=== PATIENT | female | born 1980 | race Caucasian/White ===

== ENCOUNTER → 2021-01-16 10:01 | Outpatient (BNVA) | payer OTHER, SELFPAY | PROVIDERS: PCP Family Medicine; Visit Provider Family Medicine | DX: F32.9 Major depressive disorder, single episode, unspecified (principal); G43.101 Migraine with aura, not intractable, with status migrainosus; M25.50 Pain in unspecified joint; G43.111 Migraine with aura, intractable, with status migrainosus | CPT/HCPCS: 80053; 85025; 85651; 86038; 86140; 86431 ==

== ENCOUNTER → 2021-04-22 10:06 | Outpatient (BNVA) | payer OTHER, SELFPAY | PROVIDERS: PCP Family Medicine; Visit Provider Internal Medicine | DX: M25.50 Pain in unspecified joint (principal); R53.83 Other fatigue; Z79.899 Other long term (current) drug therapy; Z11.59 Encounter for screening for other viral diseases; F41.9 Anxiety disorder, unspecified; F31.9 Bipolar disorder, unspecified; F17.290 Nicotine dependence, other tobacco product, uncomplicated | CPT/HCPCS: 99204 ==

== ENCOUNTER 2021-04-22 11:58 | Outpatient (CLI) | payer OTHER, SELFPAY ==
--- NOTE | 2021-04-22 12:17 | XRR_ITS ---
PROCEDURE INFORMATION: Exam: XR Left Knee Exam date and time: 04/22/2021 12:17 PM Age: 40 years old Clinical indication: Pain; Knee; Bilateral; Additional info: M25.50 - pain in unspecified joint TECHNIQUE: Imaging protocol: XR Left knee. Views: 1 or 2 views. COMPARISON: CR XR foot LT 2V [id number] 04/22/2021 12:33 PM FINDINGS: Bones/joints: Normal. Soft tissues: Normal. XR/XR knee LT 1-2V [id number] IMPRESSION: No significant abnormality. Radiation Dose CTDIVOL = (mGy): DLP = (mGy-cm)
--- NOTE | 2021-04-22 12:17 | XRR_ITS ---
PROCEDURE INFORMATION: Exam: XR Left Foot Exam date and time: 04/22/2021 12:17 PM Age: 40 years old Clinical indication: Pain; Foot; Bilateral; Additional info: M25.50 - pain in unspecified joint TECHNIQUE: Imaging protocol: XR Left foot. Views: 1 or 2 views. COMPARISON: No relevant prior studies available. FINDINGS: Bones/joints: No fracture or other acute abnormalities are seen. There is a small spur on the calcaneus at the Achilles tendon insertion. There is chronic degenerative narrowing and sclerosis at the 1st metatarsophalangeal joint. Soft tissues: Normal. XR/XR foot LT 2V [id number] IMPRESSION: 1. No acute abnormality. 2. Small spur on the calcaneus at the Achilles tendon insertion. 3. 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 Radiation Dose CTDIVOL = (mGy): DLP = (mGy-cm)
--- NOTE | 2021-04-22 12:17 | XRR_ITS ---
PROCEDURE INFORMATION: Exam: XR Right Hand Exam date and time: 04/22/2021 12:17 PM Age: 40 years old Clinical indication: Pain; Hand; Bilateral; Additional info: M25.50 - pain in unspecified joint TECHNIQUE: Imaging protocol: XR Right hand. Views: 1 or 2 views. COMPARISON: No relevant prior studies available. FINDINGS: Bones/joints: Normal. Soft tissues: Normal. XR/XR hand RT 2V [id number] IMPRESSION: No acute findings. Radiation Dose CTDIVOL = (mGy): DLP = (mGy-cm)
--- NOTE | 2021-04-22 12:17 | XRR_ITS ---
PROCEDURE INFORMATION: Exam: XR Left Hand Exam date and time: 04/22/2021 12:17 PM Age: 40 years old Clinical indication: Pain; Hand; Bilateral; Additional info: M25.50 - pain in unspecified joint TECHNIQUE: Imaging protocol: XR Left hand. Views: 3 or more views. COMPARISON: No relevant prior studies available. FINDINGS: Bones/joints: Normal. Soft tissues: Normal. XR/XR hand LT 2V [id number] IMPRESSION: No significant abnormality. Radiation Dose CTDIVOL = (mGy): DLP = (mGy-cm)
--- NOTE | 2021-04-22 12:17 | XRR_ITS ---
PROCEDURE INFORMATION: Exam: XR Bilateral Sacroiliac Joints Exam date and time: 04/22/2021 12:17 PM Age: 40 years old Clinical indication: Condition or disease; Other: Psoriasis, unspecified; Additional info: L40.9 - psoriasis, unspecified TECHNIQUE: Imaging protocol: XR Bilateral XR of the sacroiliac joints. Views: 3 or more views. COMPARISON: No relevant prior studies available. FINDINGS: Bones/joints: Normal. No acute fracture. Soft tissues: Normal. XR/XR sacroiliac jts m 3V [id number] IMPRESSION: The sacroiliac joints are unremarkable. Radiation Dose CTDIVOL = (mGy): DLP = (mGy-cm)
--- NOTE | 2021-04-22 12:17 | XRR_ITS ---
PROCEDURE INFORMATION: Exam: XR Cervical Spine Exam date and time: 04/22/2021 12:17 PM Age: 40 years old Clinical indication: Neck pain; Additional info: M25.50 - pain in unspecified joint TECHNIQUE: Imaging protocol: XR of the cervical spine. Views: 2 or 3 views. COMPARISON: No relevant prior studies available. FINDINGS: Bones/joints: Fhrd-qz-[id number] DJD is present with disc space narrowing and small osteophytes predominantly at the C5-C6 level. No fracture or other acute abnormalities are seen. There is no significant malalignment. Soft tissues: Unremarkable. XR/XR cervical spine fl/ex [id number] IMPRESSION: Etom-fx-hfngebfz DJD predominantly at C5-C6. No acute abnormality or malalignment. Radiation Dose CTDIVOL = (mGy): DLP = (mGy-cm)
--- NOTE | 2021-04-22 12:17 | XRR_ITS ---
PROCEDURE INFORMATION: Exam: XR Right Foot Exam date and time: 04/22/2021 12:17 PM Age: 40 years old Clinical indication: Pain; Foot; Bilateral; Additional info: M25.50 - pain in unspecified joint TECHNIQUE: Imaging protocol: XR Right foot. Views: 1 or 2 views. COMPARISON: No relevant prior studies available. FINDINGS: Bones/joints: There is a small calcaneal spur at the Achilles tendon insertion. No fracture, dislocation or other acute bone or joint abnormalities are seen. Soft tissues: Normal. XR/XR foot RT 2V [id number] IMPRESSION: Small spur on the calcaneus at the Achilles tendon insertion. No acute abnormality. Radiation Dose CTDIVOL = (mGy): DLP = (mGy-cm)
--- NOTE | 2021-04-22 12:17 | XRR_ITS ---
PROCEDURE INFORMATION: Exam: XR Right Knee Exam date and time: 04/22/2021 12:17 PM Age: 40 years old Clinical indication: Pain; Knee; Bilateral; Additional info: M25.50 - pain in unspecified joint TECHNIQUE: Imaging protocol: XR Right knee. Views: 1 or 2 views. COMPARISON: CR XR foot RT 2V [id number] 04/22/2021 12:32 PM FINDINGS: Bones/joints: Normal. Soft tissues: Normal. XR/XR knee RT 1-2V 84399 IMPRESSION: No significant abnormality. Radiation Dose CTDIVOL = (mGy): DLP = (mGy-cm)
[2021-04-22 13:17] LABS: Basophils # 0.1 10^3/uL (0.0-0.1); Basophils % 0.8 %; Eosinophils # 0.1 10^3/uL (0.0-0.8); Eosinophils % 1.4 %; Hematocrit 40.4 % (37.0-47.0); Hemoglobin 12.7 g/dL (11.5-15.3); Lymphocytes # 1.6 10^3/uL (0.8-4.8); Lymphocytes % 22.3 %; Mean Corpuscular HGB Conc 31.4 g/dL (30.0-36.0); Mean Corpuscular Volume 92.2 fl (81-99); Mean Platelet Volume 10.6 fL (7.4-10.4); Monocytes # 0.5 10^3/uL (0.2-0.9); Monocytes % 7.1 %; Neutrophils # 4.89 10^3/uL (1.8-7.7); Neutrophils % 68.1 %; Nucleated Red Blood Cells % 0 %; Platelet Count 245 10^3/cmm (130-400); Red Blood Count 4.38 10^6/uL (4.1-5.3); Red Cell Distribution Width 12.5 % (12.1-15.1); White Blood Count 7.2 10^3/uL (4.0-10.0)
[2021-04-22 13:52] LABS: Calcium 9.6 mg/dL (8.5-10.5)
[2021-04-22 13:54] LABS: Alanine Aminotransferase 20 U/L (0-33); Albumin Level 4.1 g/dL (3.5-5.2); Alkaline Phosphatase 102 IU/L (35-105); Aspartate Amino Transferase 14 U/L (0-32); Blood Urea Nitrogen 17 mg/dL (6-20); C Reactive Protein 4.4 mg/L (0.0-4.9); Calcium 9.4 mg/dL (8.5-10.5); Carbon Dioxide 23 mmol/L (22-29); Chloride 105 mmol/L (98-107); Creatine Phosphokinase 45 U/L (26-192); Ferritin 158 ng/mL (15-150); Globulin 2.9 g/dL (1.3-4.6); Glomerular Filtration Rate 93.6 mL/min (90-130); Glucose 80 mg/dL (65-115); Iron 60 ug/dL (37-145); Magnesium 2.2 mg/dL (1.7-2.3); Osmolality Calculated 285 mOsm/kg (285-295); Sodium 137 mmol/L (136-145); Total Bilirubin 0.2 mg/dL (0.15-1.2); Uric Acid 4.4 mg/dL (2.4-5.7)
[2021-04-22 13:57] LABS: Parathyroid Hormone 37.7 pg/mL (15-65)
[2021-04-22 14:08] LABS: 25 Hydroxy Vitamin D 36 ng/mL (30-100); Cortisol Random 8.81 ug/dL (2.47-19.5); Hepatitis B Core AB, Total Non-Reactive (Nonreactive); Hepatitis B Surface Antigen Non-Reactive (Nonreactive); Hepatitis C Virus Antibody Non-Reactive (Nonreactive); Vitamin B12 626 pg/mL (232-1245)
[2021-04-23 13:22] LABS: Cyclic Citrullinated Peptide <16 UNITS
[2021-04-23 13:58] LABS: COMPLEMENT, TOTAL (CH50) >60 U/mL (31-60)
[2021-04-23 16:19] LABS: COMPLEMENT COMPONENT C3C 174 mg/dL (83-193); COMPLEMENT COMPONENT C4C 47 mg/dL (15-57)
[2021-04-24 16:28] LABS: CENTROMERE B ANTIBODY <1.0 NEG AI (<1.0 NEG); JO-1 ANTIBODY <1.0 NEG AI (<1.0 NEG); RNP ANTIBODY <1.0 NEG AI (<1.0 NEG); SCL-70 ANTIBODY <1.0 NEG AI (<1.0 NEG); SJOGREN'S ANTIBODY (SS-A) <1.0 NEG AI (<1.0 NEG); SM ANTIBODY <1.0 NEG AI (<1.0 NEG); SS-B <1.0 NEG AI (<1.0 NEG)
[2021-04-24 16:32] LABS: Immunoglobulin A 245 mg/dL (47-310)
[2021-04-24 17:17] LABS: THYROID PEROXIDASE ANTIBODIES <1 IU/mL (<9)
[2021-04-25 16:39] LABS: ANA SCREEN, IFA NEGATIVE (NEGATIVE)
[2021-04-29 13:22] LABS: DNA AB (DS) CRITHIDIA,IFA NEGATIVE (NEGATIVE)
== END 2021-04-22 11:59 | disposition home or self-care (01) ==
LOC: RAD 12:07
PROVIDERS: PCP Family Medicine; Visit Provider Internal Medicine
DX: M25.50 Pain in unspecified joint (principal); R53.83 Other fatigue; Z79.899 Other long term (current) drug therapy; L40.9 Psoriasis, unspecified; Z11.59 Encounter for screening for other viral diseases
CPT/HCPCS: 36415; 72040; 72202; 73120; 73560; 73620; 80053; 82306; 82310; 82533; 82550; 82607; 82728; 82784; 83516; 83540; 83735; 83970; 84100; 84550; 85025; 86140; 86160; 86162; 86200; 86235; 86255; 86376; 86704; 86803; 87340

== ENCOUNTER → 2021-05-06 11:13 | Outpatient (BNVA) | payer OTHER, SELFPAY | PROVIDERS: PCP Family Medicine; Visit Provider Internal Medicine | DX: M19.90 Unspecified osteoarthritis, unspecified site (principal); M54.9 Dorsalgia, unspecified; F17.290 Nicotine dependence, other tobacco product, uncomplicated | CPT/HCPCS: 99214 ==

== ENCOUNTER → 2021-05-20 08:28 | Outpatient (BNVA) | payer OTHER, SELFPAY | PROVIDERS: PCP Family Medicine; Visit Provider Family Medicine | DX: R63.5 Abnormal weight gain (principal); M19.90 Unspecified osteoarthritis, unspecified site; Z68.35 Body mass index [BMI] 35.0-35.9, adult | CPT/HCPCS: 80061; 83036; 84443 ==

== ENCOUNTER → 2021-05-21 09:07 | Outpatient (BNVA) | payer OTHER, SELFPAY | PROVIDERS: PCP Family Medicine; Referring Provider Internal Medicine; Visit Provider Anesthesiology Pain Medicine | DX: M54.12 Radiculopathy, cervical region (principal); M47.812 Spondylosis without myelopathy or radiculopathy, cervical region; M79.602 Pain in left arm; M25.561 Pain in right knee; M25.562 Pain in left knee | CPT/HCPCS: 99204 ==

== ENCOUNTER → 2022-02-26 09:39 | Outpatient (BNVA) | payer OTHER, SELFPAY | PROVIDERS: PCP Family Medicine; Visit Provider Student in an Organized Health Care Education/Training Program | DX: M67.431 Ganglion, right wrist (principal) | CPT/HCPCS: 73110 ==

== ENCOUNTER 2022-03-18 06:42 | Day surgery (SDC) | payer OTHER, SELFPAY ==
[2022-03-17 08:22] VITALS: BMI 34.9
[2022-03-18] VITALS (15 sets, daily range): BP systolic 110–155; BP diastolic 59–93; PULSE 50–71; RESP 12–18; TEMP 36.2–36.6; O2SAT 96–100
--- NOTE | 2022-03-18 06:59 | W.PM.OPSUD ---
Surgery/Procedure H&P Update DATE OF PROCEDURE: March 18, 2022 DATE H&P PERFORMED: 02/26/22 CHANGES TO PREVIOUS DOCUMENTATION: None PREOP DIAGNOSIS: Right dorsal wrist ganglion cyst PRIMARY INDICATION FOR PROCEDURE: Painful Right dorsal wrist ganglion cyst PLANNED PROCEDURE: Operation Date: 03/18/22 08:20 Proposed Procedures p RIGHT WRIST DORSAL GANGLION CYST EXCISION [id number],M25.539(Right) - Daniel Krueger DO
[2022-03-18] MEDS: acetaminophen 1,000 MG/100 ML PIGGYBACK 400 MG IV (07:25)
[2022-03-18] MEDS: sodium chloride 0.9% 1,000 ML 30 ML IV (07:25)
--- NOTE | 2022-03-18 07:32 | ANES.PREANE2 ---
Pre-Anesthetic Assessment Height/Weight: Height 1.57 m Weight 86.636 kg Temp Pulse Resp BP Pulse Ox O2 Del Method 98 F 70 16 116/93 99 03/18/22 07:03 03/18/22 07:03 03/18/22 07:03 03/18/22 07:03 03/18/22 07:03 03/18/22 07:03 Preop Diagnosis: Right dorsal wrist ganglion cyst Operation Date: 03/18/22 08:20 Proposed Procedures p RIGHT WRIST DORSAL GANGLION CYST EXCISION [id number],M25.539(Right) - Daniel Gonzales, Familial anesthetic complications: none Was Beta Caryn taken within 24 hours: N/A Was Clonidine taken within 24 hours: N/A Last intake: Intake Last Liquid Date 03/17/22 Last Liquid Time 18:30 Last Solid Date 03/17/22 Last Solid Time 18:30 Social No alcohol and No tobacco Exam alert, oriented x 3, clear to auscultation bilaterally and regular rate & rhythm Airway Submandibular: within normal limits Cervical ROM: within normal limits Mallampati: Class II Dentition: full Metabolic Morbid Obesity Musc/skel Lower Back Pain and Osteoarthritis/DJD Neuropsych Anxiety, Depression and Headache Anesthetic Plan ASA status: 2 Anesthesia: MAC Medications/Allergies Home Medications Medication Instructions Recorded Confirmed Last Taken Type No Known Home Medications 02/13/22 03/17/22 Unknown History Allergies Allergy/AdvReac Type Severity Reaction Status Date / Time Iodinated Contrast Media Allergy swelling Verified 03/17/22 08:21 Penicillins Allergy rash Verified 03/17/22 08:21 tramadol Allergy rash and Verified 03/17/22 08:21 itching Current Medications Generic Name Dose Route Start Last Admin Trade Name Freq PRN Reason Stop Dose Admin Sodium Chloride 1,000 mls @ 30 mls/hr 03/18/22 07:00 03/18/22 07:25 Sodium Chloride 0.9% IV 03/19/22 06:59 30 mls/hr .Q24H RENETTA Administration PFSH Anesthesia Medical History Back pain Bipolar 2 disorder ROBERT (generalized anxiety disorder) Grief Migraine with aura with status migrainosus Other reactions to severe stress Problems related to lack of adequate sleep Psychiatric care Surgical History H/O hysterectomy for benign disease Still has one one ovary At age 33 Family History Grandfather Heart attack Hypertension Mother Rheumatoid arthritis Lupus Grandmother Rheumatoid arthritis Father Cancer Denies family history of Diabetes Hyperlipidemia Stroke Social History Smoking and tobacco status: current every day smoker e-cigarettes Alcohol intake: never Adopted: No Caregiver/support person: No Lives independently: No Household members: spouse Marital status: service: No Current occupational status: employed History of recent travel: No Sexually active: Yes Current gender identity: Female Data Anesthesia Cardiac Studies: No Data to Display
[2022-03-18] MEDS: ketorolac 30 mg/mL INJ IVP (07:38)
[2022-03-18] MEDS: clindamycin 600 MG/50 ML PREMIX 100 MG IV (08:24)
[2022-03-18] MEDS: sodium bicarbonate 1 mEq/mL SDV 50mL XX (08:51)
[2022-03-18] MEDS: meperidine 50 mg/mL INJ 12.5 MG IVP (09:28)
--- NOTE | 2022-03-18 09:29 | PM.PACU ---
PACU note Narrative: Patient recovering well in PACU. Splint on and in place. Patient is able to wiggle fingers sensation intact to light touch to the radial/ulnar/median nerve distribution. Fingertips warm well-perfused brisk capillary refill less than 2 seconds. Dressing clean dry and intact. Exam: awake (See narrative exam for details) Disposition: discharged
--- NOTE | 2022-03-18 09:30 | P.OP_ITS ---
Brief Operative Note Date of procedure: 03/19/22 Pre-op diagnosis: Painful right wrist dorsal ganglion cyst Post-op diagnosis: same Procedure Done: Right wrist dorsal ganglion cyst excision Surgeon: Daniel Krueger Estimated blood loss (mL): 5 Complications: None Post-op Plan: Patient recover in PACU. Volar splint on in place. Patient given appropriate discharge instructions and will follow up the orthopedic office in 2 weeks. We will have her seen by OT hand therapy next week for dressing takedown as well as begin range of motion. Condition: stable Disposition: same day Coding Level of Care Code Acute Fabric Awning Repairer for Anu Galloway
[2022-03-18] MEDS: ondansetron 2 mg/ML SDV 2 mL 4 MG IVP ×2 (09:32→10:50)
--- NOTE | 2022-03-18 09:39 | P.OP_ITS ---
Operative Report Date of procedure: March 19, 2022 Pre-op diagnosis: Preop Diagnosis Right dorsal wrist ganglion cyst Post-op diagnosis: Same Procedure done: Right wrist dorsal ganglion cyst excision Specimens removed/disposition: Right wrist dorsal ganglion cyst excised and sent for pathology Pathology: Right wrist dorsal ganglion cyst excised and sent for pathology Surgeon: Daniel Krueger DO Estimated blood loss (mL): 5 20 minutes IV fluids: See anesthesia record Complications: None Findings: See operative note Condition: stable Disposition: same day Brief History: Patient was seen evaluated worked up in the outpatient clinic with painful right dorsal ganglion cyst. 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 We had detailed discussion about nonoperative and operative intervention ultimately at this point we talked that this can be left alone and this can be decompressed in the office versus surgical excision. Given the constant pain and discomfort and she would like this to have the lowest chance of recurrence she would like to proceed with a right wrist dorsal ganglion cyst excision. Through shared decision making we agreed to proceed with this plan. Patient understands the risk benefits complications alternatives to surgical treatment options and elects to proceed with surgery. Consent was obtained in the office Procedure: Patient seen evaluated in the preoperative holding area. Consent was reviewed with patient the correct extremity was then marked. Patient then was evaluated by the anesthesia and preoperative team once appropriately cleared for surgery she was taken back to the operative suite and placed on the supine position on the OR table with right hand on the armboard. She was appropriately secured and all bony prominences well-padded. Nonsterile tourniquet was applied to the right upper extremity. Patient received appropriate preoperative antibiotics. Right upper extremity was then prepped and draped in standard orthopedic fashion. Prior to incision patient was injected with local of 5 cc lidocaine 5 cc ropivacaine around the planned incision site. Esmarch tourniquet was used exsanguinate the extremity and tourniquet inflated to 250 mmHg. Next direct longitudinal incision was made centering over the ganglion cyst. Sharp dissection through skin and subcutaneous tissue. Next I utilized Littler dissection scissors to dissect out any cutaneous nerve branches were protected throughout this case. I then came over the distal end of the extensor retinaculum. This point it was clear patient's cyst was between the third and fourth dorsal compartments distally. I had to incise the sheath between these 2 intervals distally I did not have to violate the extensor retinaculum. Care was made to protect the extensor tendons throughout the case. I spread longitudinal and at this point time came down directly over the ganglion cyst which was evidence in its appearance and extend from the dorsal capsule communication. At this point utilized Littler dissection scissors to mobilize circumferentially around and once this was complete I identified the stalk and transected this at the base utilizing electrocautery. I did poke the dorsal ganglion cyst which had standard gelatinous ganglion cyst fluid this was sent for pathology. Next identified the cyst bed and utilized bipolar electrocautery to thoroughly cauterize the entire bed to prevent any type of recurrence. This point the wound bed was then thoroughly irrigated the wrist was taken through range of m otion no evidence of instability and no dorsal wrist prominence noted. Tourniquet deflated hemostasis adequate with electrocautery. I then performed a layered closure 3-0 Vicryl and running horizontal mattress nylon suture. Xeroform 4 x 4's Kerlix ABD and a volar splint applied to the right upper extremity. Patient awakened from anesthesia and taken to PACU in stable condition. Disposition: Patient recovering in PACU. Patient in a volar splint dressing clean dry and intact. Given appropriate discharge instructions as well as pain medication. May be weightbearing as tolerated to the right hand. Will best be seen by OT hand therapy for dressing change and begin range of motion strengthening postoperatively. Follow-up with me in 2 weeks.
[2022-03-18] MEDS: fentaNYL 50 mcg/mL INJ 2mL IVP (09:42)
[2022-03-18] MEDS: oxyCODONE 5 mg IR Tab/Cap PO (10:21)
--- NOTE | 2022-03-18 15:37 | ANE.PACU2 ---
Inpatient post-anesthesia follow up: Airway intact: Yes Vital signs: Temperature 97.2 F Pulse Rate 52 Respiratory Rate 18 Blood Pressure 155/89 Pulse Oximetry 100 Oxygen Delivery Me thod Room Air Oxygen Flow Rate 6 Fraction of Inspir ed Oxygen Hydration adequate: Yes Nausea and vomiting: No Pain level: 3 Mental status: Baseline
== END 2022-03-18 11:30 | disposition home or self-care (01) ==
PROVIDERS: PCP Registered Nurse; Visit Provider Student in an Organized Health Care Education/Training Program
PROC: (CPT 25111; principal; 2022-03-18 08:10)
DX: M67.431 Ganglion, right wrist (principal); E66.01 Morbid (severe) obesity due to excess calories; Z68.34 Body mass index [BMI] 34.0-34.9, adult; F41.1 Generalized anxiety disorder; F17.290 Nicotine dependence, other tobacco product, uncomplicated
CPT/HCPCS: 25111; 88304; J1885; J2175; J2250; J2405; J2704; J3010; J3490; J7030

== ENCOUNTER 2022-03-24 06:00 | Outpatient (RCR) | payer OTHER, SELFPAY | END 2022-04-20 23:59 | disposition home or self-care (01) | LOC: SOT 06:00 | PROVIDERS: PCP Registered Nurse; Visit Provider Student in an Organized Health Care Education/Training Program | DX: M67.431 Ganglion, right wrist (principal) | CPT/HCPCS: 97110; 97140; 97166 ==

== ENCOUNTER → 2023-08-30 13:09 | Outpatient (BNVA) | payer OTHER, SELFPAY | PROVIDERS: PCP Registered Nurse; Visit Provider Nurse Practitioner | DX: Z79.899 Other long term (current) drug therapy (principal); F31.81 Bipolar II disorder; F41.1 Generalized anxiety disorder | CPT/HCPCS: 80061; 83036 ==

== ENCOUNTER 2024-01-17 12:14 | Outpatient (CLI) | payer BC, SELFPAY ==
--- NOTE | 2024-01-17 | ECG_ITS ---
[facility] Test Date: 2024-01-17 Pat Name: Darlene Ortiz Department: Room: Gender: Female Support Dba: : 1980 Requested By: Ruby Moreno Order Number: [id number] Reading MD: Interpretive Statements Lung unchanged pre/post procedure; Intraprocedure shortess of breath; Symptoms resoled by discharge [id number]
[2024-01-17 12:22] VITALS: BMI 30.2
[2024-01-17 13:13] VITALS: BP 111/72; PULSE 75
== END 2024-01-17 12:15 | disposition home or self-care (01) ==
LOC: CDL 12:15
PROVIDERS: PCP Nurse Practitioner Family; Visit Provider Nurse Practitioner Family
DX: R00.1 Bradycardia, unspecified (principal); R55 Syncope and collapse; R07.9 Chest pain, unspecified; R06.02 Shortness of breath
CPT/HCPCS: 93017

== ENCOUNTER 2024-03-30 07:08 | Outpatient (CLI) | payer BC, SELFPAY ==
[2024-03-30 07:28] VITALS: BMI 31.4
--- NOTE | 2024-03-30 07:28 | ECG_ITS ---
[facility] Test Date: 2024-03-30 Pat Name: Darlene Ortiz Department: Room: Gender: Female Net Web Application Developer: : 1980 Requested By: Ruby Moreno Order Number: [id number] Thurman MD: Norberto Jesus M.D. Interpretive Statements LEXISCAN SESTAMIBI STRESS TEST Procedure: At the baseline, the blood pressure was 116/85 mmHg with a heart rate of 52bpm. The electrocardiogram showed Sinus bradycardia, normal axis with normal ST and T's. The Lexiscan was infused over a period of 20 seconds. A total of 0.4 mg of Lexiscan was infused. The stress phase was continued for a total of 5 minutes. Heart rate was at the end of stress phase was 74bpm and a blood pressure of 112/73 mmHg. The EKG at the peak infusion revealed normal sinus rhythm with no significant ST-T wave changes. Sestamibi was injected 20 seconds after the Lexiscan infusion. Blood pressure at the end of recovery phase was 116/70 mmHg with a heart rate of 72 bpm. Conclusion: 1. Normal EKG response to Lexiscan infusion 2. No Lexiscan induced chest pain or cardiac arrhythmia. 3. Normal blood pressure and heart rate response. 4. Sestamibi/sestamibi perfusion scan pending; see separate report. Electronically Signed On 03-31-2024 19:45:12 CDT by Norberto Jesus M.D. [id number]
--- NOTE | 2024-03-30 07:29 | NMCV_ITS ---
NM lester perf SPECT r/s* [id number] Darlene Ortiz Age: 43 Gender: F : 1980 Exam Date: 03/30/2024 07:29 Ordering Phys: Ruby Moreno Technologist: KIM Calvert Exam Location: [facility] Indications: cp STRESS TEST Please [facility] IMAGE PROTOCOL Rest/Stress 1 Lexiscan Day Radiopharmaceutical Dose (mCi) Administration Site Administered by Rest: Tc-99m 10.9 IV Bertha Palomares, HYDROSTATIC TUBING TESTER Sestamibi Stress:Tc-99m 32 IV Bertha Gutiérrezgle, HYDROSTATIC TUBING TESTER Sestamibi Rest: 30-Mar-2024 60 Discovery 630 Stress: 30-Mar-2024 30 Discovery 630 0.4mg Lexiscan. Images obtained in supine and prone position. SPECT RESULTS Technical Quality: Good Raw Data Analysis: Normal Image Corrections: No attenuation or motion correction applied Summed Stress Score: 0 Summed Rest Score: 0 Summed Difference Score: 0 PERFUSION FINDINGS Small area of persistently decreased tracer uptake noted in the mid segment of the anterior wall in the absence of wall motion abnormality it could be an artifact. FUNCTIONAL RESULTS (calculated via Gated SPECT) Stress Image LV EF (%): 68 Stress EDV (mL):106 TID: 1 Stress ESV (mL):34 FUNCTIONAL FINDINGS: There is normal left ventricular systolic function. IMPRESSIONS This study is negative for ischemia, left ventricular ejection fraction appeared to be normal there is no wall motion abnormality. Carmen Harrington MD (Electronically Signed) Final Date: 30 March 2024 11:04 S
[2024-03-30] MEDS: regadenoson 0.4 Mg/5 ml Syringe IVP (09:32)
[2024-03-30 09:46] VITALS: BP 116/70; PULSE 73
== END 2024-03-30 07:09 | disposition home or self-care (01) ==
PROVIDERS: PCP Nurse Practitioner Family; Visit Provider Nurse Practitioner Family
DX: R00.1 Bradycardia, unspecified (principal); R55 Syncope and collapse; R07.9 Chest pain, unspecified
CPT/HCPCS: 36415; 78452; 93017; 96374; A9500; J2785

== ENCOUNTER → 2024-12-04 08:26 | Outpatient (BNVA) | payer BC, SELFPAY | PROVIDERS: PCP Nurse Practitioner Family; Visit Provider Nurse Practitioner | DX: Z79.899 Other long term (current) drug therapy (principal) | CPT/HCPCS: 80061; 83036 ==

== ENCOUNTER → 2025-05-31 10:09 | Outpatient (BNVA) | payer BC, SELFPAY | PROVIDERS: PCP Nurse Practitioner Family; Visit Provider Nurse Practitioner | DX: Z79.899 Other long term (current) drug therapy (principal) | CPT/HCPCS: 80053; 84443 ==

== ENCOUNTER → 2025-06-11 08:24 | Outpatient (BNVA) | payer BC, SELFPAY | PROVIDERS: PCP Nurse Practitioner Family; Visit Provider Nurse Practitioner | DX: Z79.899 Other long term (current) drug therapy (principal) | CPT/HCPCS: 80178 ==